=== PATIENT | female | born 1950 | race Caucasian/White ===

== ENCOUNTER → 2016-04-05 | Outpatient (CLI) | payer MEDICARE | END | disposition home or self-care (01) | LOC: PCVCCLINIC 10:22 | PROVIDERS: ATTEND Internal Medicine | DX: I10 Essential (primary) hypertension (principal); E78.5 Hyperlipidemia, unspecified; R73.09 Other abnormal glucose | CPT/HCPCS: 80061; 93005; G0463 ==

== ENCOUNTER → 2016-10-04 | Outpatient (CLI) | payer MEDICARE | END | disposition home or self-care (01) | LOC: PCVCCLINIC 11:11 | PROVIDERS: ATTEND Internal Medicine | DX: I11.0 Hypertensive heart disease with heart failure (principal); I50.32 Chronic diastolic (congestive) heart failure; E78.5 Hyperlipidemia, unspecified; E11.9 Type 2 diabetes mellitus without complications; Z90.710 Acquired absence of both cervix and uterus; Z79.84 Long term (current) use of oral hypoglycemic drugs; Z88.8 Allergy status to other drugs, medicaments and biological substances | CPT/HCPCS: 80061; 93005; G0463 ==

== ENCOUNTER → 2017-06-27 | Outpatient (CLI) | payer MEDICARE | END | disposition home or self-care (01) | LOC: PCVCCLINIC 14:58 | DX: I11.0 Hypertensive heart disease with heart failure (principal); I50.32 Chronic diastolic (congestive) heart failure; E78.5 Hyperlipidemia, unspecified; E11.9 Type 2 diabetes mellitus without complications; Z79.84 Long term (current) use of oral hypoglycemic drugs | CPT/HCPCS: 93005; G0463 ==

== ENCOUNTER → 2018-07-03 | Outpatient (CLI) | payer MEDICARE ==
--- NOTE | 2018-07-03 10:46 | PCVCIMAG ---
APPROVED REPORT Study performed: 07/03/2018 09:41:16 EXAM: Comprehensive 2D, Doppler, and color-flow Echocardiogram Patient Location: Echo lab Room #: 3Status: routine BSA: 1.88 HR: 70 bpmBP: 114/64 mmHg Rhythm: NSR Other Information Study Quality: Adequate Risk Factors: Cardiac Risk Factors: HTN, DM, Dyslipidemia Indications LV Function:Diastolic Diabetes Hypertension/HDD 2D Dimensions IVSd: 10.61 (7-11mm)LVOT Diam: 19.01 (18-24mm) LVDd: 36.72 mm PWd: 9.70 (7-11mm)Ascending Ao: 30.62 (22-36mm) LVDs: 20.72 (25-40mm) Left Atrium: 35.69 (27-40mm) Aortic Root: 25.55 mm LV Single Plane 4CH: 55.18 % LV Single Plane 2CH: 61.32 % Biplane EF: 59.5 % Volumes Left Atrial Volume (Systole) Single Plane 4CH: 52.44 mLSingle Plane 2CH: 51.24 mL Biplane LA Volume: 53.00 mLLA ESV Index: 28.00 mL/m2 Aortic Valve AoV Peak Ash.: 1.46 m/s AO Peak Gr.: 8.57 mmHgLVOT Max P.61 mmHg LVOT Max V: 0.94 m/s BEE Vmax: 1.81 cm2 Mitral Valve E/A Ratio: 0.9 MV Decel. Time: 197.73 ms MV E Max Ash.: 0.64 m/s MV A Ash.: 0.71 m/s IVRT: 96.89 ms TDI E/Lateral E': 9.14E/Medial E': 10.67 Medial E' Ash.: 0.06 m/s Lateral E' Ash.: 0.07 m/s Pulmonary Valve PV Peak Ash.: 1.29 m/sPV Peak Gr.: 6.68 mmHg Pulmonary Vein P Vein S: 0.59 m/sP Vein A: 0.27 m/s P Vein D: 0.36 m/sP Vein A Dur.: 107.3 msec P Vein S/D Ratio: 1.64 Tricuspid Valve TR Peak Ash.: 1.87 m/s TR Peak Gr.: 14.00 mmHg TV Vmax: 0.53 m/sPA Pressure: 21.00 mmHg Left Ventricle The left ventricle is normal size. There is normal LV segmental wall motion. There is normal left ventricular wall thickness. Left ventricular systolic function is normal. The left ventricular ejection fraction is within the normal range. LVEF is 55-60%. Mild diastolic dysfunction is present (impaired relaxation pattern). Right Ventricle The right ventricle is normal size. The right ventricular systolic function is normal. Atria The left atrium size is normal. The right atrium size is normal. Aortic Valve Aortic valve is trileaflet. The aortic valve is normal in structure and function. No aortic regurgitation is present. There is no aortic valvular stenosis. Mitral Valve The mitral valve is normal in structure. There is no mitral valve regurgitation noted. No evidence of mitral valve stenosis. Tricuspid Valve The tricuspid valve is normal in structure. Trace tricuspid regurgitation with a PA pressure of 21 mmHg. Pulmonic Valve The pulmonary valve is normal in structure. There is no pulmonic valvular regurgitation. Great Vessels The aortic root is normal in size. The ascending aorta is normal in size. Aortic arch is normal in caliber. IVC is normal in size and collapses >50% with inspiration. Pericardium There is no pericardial effusion. There is no pleural effusion. <Conclusion> Left ventricular systolic function is normal. There is normal LV segmental wall motion. LVEF is 55-60%. Mild diastolic dysfunction The aortic valve is normal in structure and function. No aortic regurgitation or stenosis The mitral valve is normal in structure. No mitral valve regurgitation Trace tricuspid regurgitation with a pulmonary artery pressure of 21 mmHg. There is no pericardial effusion.
== END | disposition home or self-care (01) ==
LOC: PCVCIMAG 09:34
PROVIDERS: ATTEND Internal Medicine
DX: I11.0 Hypertensive heart disease with heart failure (principal); I50.32 Chronic diastolic (congestive) heart failure; E11.9 Type 2 diabetes mellitus without complications; E78.5 Hyperlipidemia, unspecified
CPT/HCPCS: 36415; 80061; 93306; G0463